=== PATIENT | male | born 1955 | race Caucasian/White ===

== ENCOUNTER 2024-10-08 12:20 | Outpatient (REF) | payer MEDICARE, MEDICAID, SELFPAY ==
[2024-10-08 15:14] LABS: Influenza A PCR NEGATIVE (Negative); Influenza B PCR NEGATIVE (Negative); Resp Syncy Virus RNA Qual PCR NEGATIVE (Negative); SARS COV2 PCR INHOUSE NEGATIVE (Negative)
--- OUTSIDE RECORDS SUMMARY | 2024-10-08 17:56 | XMS_ITS | Clinical Summary ---
Author Organization [facility] [address] [place] [address] [place] [phone] Phone Care Team Providers Care Sanding Machine Operator Or Tender Name Role Phone Jean Carlos Gamble MD Primary Care Provider Allergies Active Allergy Reactions Criticality Noted Date [...] there are some congenital anomalies of the [place]. There is a diminutive or [...] Dr. Corea right knee SINUS SURGERY PROCEDURE: AL UNLISTED PROCEDURE ACCESSORY SINUSES SHOULDER SURGERY PROCEDURE: AL UNLISTED PROCEDURE SHOULDER SHOULDER SURGERY PROCEDURE: AL UNLISTED PROCEDURE SHOULDER; COMMENT: left rc HAND [...] Visit Adult Medicine [facility] [address] [place] [phone] Jean Carlos Gamble MD [address] [place] [address] Health Maintenance Due Date Last Done Comments [...] EST Essential hypertension Coronary artery disease involving [place] coronary artery of [place] heart without angina pectoris Prediabetes VBI (vertebrobasilar [...] LAB CHEMISTRY METHOD 07/03/2024 5:28 PM EST [facility] Potassium 4.1 3.5 - 5.5 mmol/L LAB CHEMISTRY METHOD 07/03/2024 5:28 PM [facility] Chloride 106 96 - 110 mmol/L LAB CHEMISTRY METHOD 07/03/2024 5:28 PM [facility] CO2 27 21 - 32 mmol/L LAB CHEMISTRY METHOD 07/03/2024 5:28 PM [facility] Anion Gap 7 3 - 11 LAB CHEMISTRY METHOD 07/03/2024 5:28 PM [facility] Glucose 112(H) 70 - 100 mg/dL LAB CHEMISTRY METHOD 07/03/2024 5:28 PM [facility] BUN 10 5 - 25 mg/dL LAB CHEMISTRY METHOD 07/03/2024 5:28 PM [facility] Creatinine 0.90 0.70 - 1.30 mg/dL LAB CHEMISTRY METHOD 07/03/2024 5:28 PM [facility] eGFR 94 >=60 mL/min/1. 73m2 LAB CHEMISTRY METHOD 07/03/2024 5:28 PM [facility] Comment:Calculation based on the??Chronic Kidney Disease Epidemiology Collaboration (CKD-EPI) equation refit??without adjustment for race. BUN/Creatinine Ratio 11.1 LAB CHEMISTRY METHOD 07/03/2024 5:28 PM [facility] Calcium 9.3 8.5 - 10.5 mg/dL LAB CHEMISTRY METHOD 07/03/2024 5:28 PM [facility] Blood Venous blood specimen / Unknown Venipuncture / Unknown 07/03/2024 1:31 PM EST 07/03/2024 1:31 PM EST us Jean Carlos Gamble MD LAB BLOOD ORDERABLES Final Result [facility] [address] [place] [address], * Lipid panel (10/23/2023) [facility] LDL/HDL Ratio 3 0 - 4 Triglycerides 96 0 - 150 mg/dL Cholesterol 121 0 - 200 mg/dL HDL 41 >=40 mg/dL LDL Cholesterol 61 0 - 100 mg/dL Blood Venous blood specimen / Unknown Result [facility] Provider LAB BLOOD ORDERABLES Misa l Result * Falls Risk Assessment (10/06/2023) [facility] Falls Risk Assessment Abstracted Result [facility] Provider HEALTH MAINTENANCE Final Result * Depression Screening (10/06/2023) [facility] Depression Screening Abstracted Result [facility] Provider HEALTH MAINTENANCE Final Result * FIT-DNA (Cologuard) (06/30/2023) [facility] Colorectal Cancer Screening: FIT-DNA (Cologuard) Abstracted ,negative Result [facility] Provider HEALTH MAINTENANCE Final Result * Hepatitis C Screening (03/05/2013) [facility] Hepatitis C Screening Abstracted Result [facility] Provider HEALTH MAINTENANCE Final Result from Last 3 Months or Most Recently Relevant to Health Maintenance Insurance MEDICARE MEDICAID - [place] Care Teams Sanding Machine Operator Or Tender Relationship Specialty Start Date End Date Jean Carlos Gamble MD [address] [place] [address] PCP - General Internal Medicine 03/02/22
--- OUTSIDE RECORDS SUMMARY | 2024-10-08 17:56 | XMS_ITS | Clinical Summary ---
Author Organization [facility] Address [address] [place] [address] Care Team Providers Care Tank Wagon Driver Name Role Phone Mary Beth Hennessy MD [...] age to complete this topic Care Teams Tank Wagon Driver Relationship Specialty Start Date End Date Mary Beth Hennessy MD PCP - General Internal Medicine 02/11/21
== END 2024-10-08 12:21 | disposition home or self-care (01) ==
LOC: HO.LNP 12:20
PROVIDERS: Visit Provider Nurse Practitioner Family
DX: R68.89 Other general symptoms and signs (principal); R09.89 Other specified symptoms and signs involving the circulatory and respiratory systems; R05.9 Cough, unspecified; I25.2 Old myocardial infarction
CPT/HCPCS: 0241U; 99212

== ENCOUNTER → 2024-10-08 12:20 | Outpatient (AMB) | payer MEDICARE, MEDICAID, SELFPAY ==
--- NOTE | 2024-10-08 12:21 | AM.OFFWIN_ITS ---
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 Required: No Allergies acetaminophen [From Percocet] Allergy (Severe, Verified 10/08/24 12:48) Rash albuterol Allergy (Severe, Verified 10/08/24 12:48) Cough carisoprodol [From Soma] Allergy (Severe, Verified 10/08/24 12:48) Unknown Cephalosporins Allergy (Severe, Verified 10/08/24 12:48) Unknown oxycodone Allergy (Severe, Verified 10/08/24 12:48) Unknown Penicillins Allergy (Severe, Verified 10/08/24 12:48) Blister Medication List - Last Reconciled 10/08/24 by Ruchi Gillespie, [facility] carbidopa-levodopa 25-100 mg tabs PO clotrimazole 1% appl topical DAILY cyanocobalamin (vitamin B-12) 1,000 mcg PO 3XW diclofenac sodium 1% 2 grams topical BID metformin ER mg PO DAILY mupirocin 2% topical Do you need a note to return to daycare/school/sports/work: No HPI HPI Comments History of Present Illness Details History - The patient is a 69 year old male pres enting with upper respiratory symptoms and fatigue. - Symptoms began approximately a week ag o and include nasal congestion, cough, and overall fatigue. - Has a history of myocardial infarction , impacting his decision to avoid the COVID-19 vaccine. - The patient has tried Tylenol for symp brandon relief, which offers partial efficacy for body aches. - He denied receiving a flu vaccine this year. Physical Exam General: Awake, alert. No apparent distress Eyes: Sclera and conjunctiva clear bilaterally Nose: Nares patent, turbinates within normal limits, no sinus tenderness with palpation bilaterally Ears: Tympanic membranes intact and clear bilaterally Throat: Moist mucosa membrane, pharynx within normal limits Cardiovascular: RRR Respiratory: Clear to auscultation bilaterally Results - Swab for influenza, COVID-19, and RSV testing negative . Discussion Notes During the visit, I explained the testing process for influenza, COVID-19, and RSV. I advised the patient that if influenza is confirmed, there is a medication available to assist with recovery. In case of a COVID-19 diagnosis, the use of Paxlovid was addressed. However, I noted the drug's potential interaction with [place] and expressed the possibility of adverse effects. I recommended close observation and proposed phone discussions later to review test results and designate an appropriate treatment plan. As part of the decision-making process, I expressed intent to provide symptomatic treatment, such as an anti-cough medication, if that aligns with test results. I highlighted the need to pursue additional interventions when necessary and addressed the importance of following up on test findings promptly. The patient declined a work note. Assessment and Plan 1. Upper Respiratory Infection (suspecte d): Symptoms suggest an upper respiratory infection, pending confirmation from the swab results. I discussed t he possibility of medication for influenza and COVID-19, considering interactions with existing medications. The plan includes symptomatic relief and further treatment based on the results. 2. History of Myocardial Infarction: The patient's past myocardial infarction is a significant factor when considering treatments, especially considering contraindications. His decision not to pursue certain vaccinations post-event was reviewed. Patient Instructions - Await a call later today with your marbella t results to discuss next steps. - Continue using Tylenol for pain relief as needed. - Use a mask in public and practice good hand hygiene to prevent spread. - If symptoms worsen or new symptoms mandeep se, seek medical attention promptly. Viral swab negative, supportive care. [facility] on reasons to RTO/seek additional medical care. Consent Consent was obtained from the patient for nasal swabbing to test for influenza, COVID-19, and RSV. I reviewed the testing process and potential interactions of certain medications with his current treatment. The patient agreed to proceed understanding the potential risks and outcomes associated with the diagnostic procedures. Patient was informed and verbally consented to the use of an ambient scribe for clinic note documentation during this visit. Total time spent caring for the patient today was 30 minutes. This includes time spent before the visit reviewing the chart, time spent during the visit, and time spent after the visit on documentation, reviewing laboratory results, diagnostic imaging, medications, performing a medically necessary evaluation, counseling on diagnoses, care coordination, ordering appropriate tests, ordering appropriate medications, review of tests performed by other providers, reporting test results with the patient, communication with other healthcare providers. [facility] Social History Patient Tobacco Use Status: Never used Tobacco Physical Exam Vital Signs: Last Vital Signs Temp 97.5 F 10/08/24 12:29 Pulse 72 10/08/24 12:29 Resp 12 10/08/24 12:29 BP 122/70 10/08/24 12:29 Pulse Ox 96 10/08/24 12:29 Oxygen Delivery Method Room Air 10/08/24 12:29 BMI result Body Mass Index 34.0 Results Reviewed Results Reviewed: RUN: 10/08/24 1522 PAGE 1 [facility] [address] [place] [id number] Steam Press Operator: Devante Liao M.D. Specimen Inquiry Name: Lee Garza Age/Sex: 69/M : 1955 Unit#: [id number] Attend Dr: Ruchi Gillespie Re10/08/24 Status: REG REF Location: [facility] Disch: SPEC : [id number] PARISH: 10/08/24 STATUS: COMP REQ : [id number] RECD: 10/08/[address] [facility] [address]: Ruchi GillespiePDedra COMP: 10/08/24 ENTERED: 10/08/[address] [facility] [address]: ORDERED: SARS/FLU/RSV Test Result Flag Reference Influenza A PCR NEGATIVE Negative Influenza B PCR NEGATIVE Negative RSV RNA QualPCR NEGATIVE Negative SARSCOV2 RT-PCR NEGATIVE Negative All test results must be correlated with clinical findings. Negative results do not preclude SARS-CoV2, influenza A virus, influenza B virus and/or RSV infection and should not be used as the sole basis for treatment or other patient management decisions. Negative results must be combined with clinical observations, patient history, and epidemiological information. This test has not been evaluated for monitoring treatment of infection. This test has been authorized by the FDA under an Emergency Use Authorization (EUA) for use by authorized laboratories. Testing performed on the [place] [facility]Xpert utilizing real-time RT-PCR. All SARS CoV2 and positive influenza A/B results are reported to [facility]. Assessment & Plan Assessment & Plan (1) Flu-like symptoms: Code(s): R68.89 - Other general symptoms and signs Plan . Orders: Orders SARS-CoV2/FLU/RSV Today R09.89 - Other specified symptoms and signs involving the circulatory and respiratory systems, R68.89 - Other general symptoms and signs Medications: New guaifenesin ER (Mucinex) 600 mg PO Q12H 10 days PRN 20 tabs 0RF congestion Patient Instructions: Patient Instructions - Await a call later today with your test results to discuss next steps. - Continue using Tylenol for pain relief as needed. - Use a mask in public and practice good hand hygiene to prevent spread. - If symptoms worsen or new symptoms arise, seek medical attention promptly. Coding Level of Care Code Est Pt Level 4 (15988) Diagnoses Flu-like symptoms R68.89
[2024-10-08 12:29] VITALS: BP 122/70; PULSE 72; RESP 12; TEMP 36.4; O2SAT 96; BMI 34.0
--- OUTSIDE RECORDS SUMMARY | 2024-10-08 14:58 | XMS_ITS | Clinical Summary ---
Author Organization [facility] Address [address] [place] [address] Care Team Providers Care Skimmer Reverberatory Name Role Phone Mary Beth Hennessy MD Primary Care Provid er Social History Tobacco Use Types Packs/Day Years Used Date Smoking Tobacco: Never Assessed Sex and Gender Information Value Date Recorded Sex Assigned at Not on file Gender Identity Not on file Sexual Orientation Not on file Plan of Treatment Health Maintenance Due Date Last Done Comments Hepatitis C Screening 1955 Depression Screening 1969 Preventative Health Evaluation 1975 DTap / Tdap / Td (1 - Tdap) 02/01/1976 Colon Cancer Screening (Colonoscopy) 2002 Shingrix-Zoster Vaccine (1 of 2) 2007 Fall Risk Assessment 2022 Pneumococcal Vaccine (1 of 1 - PCV) 2022 COVID-19 Vaccine (2 - 2023-2 5 season) 2024 01/26/2021 Influenza Vaccine (#1) 2024 RSV Adult > 60+ Yrs or Pregn ant (1 - 1-dose 75+ series) 02/01/2032 Hepatitis B Vaccines Aged Out No long er eligible based on patient's age to complete this topic RSV Ped < 20 months Aged Out No longe r eligible based on patient's age to complete this topic Care Teams Skimmer Reverberatory Relationship Specialty Start Date End Date Mary Beth Hennessy MD PCP - General Internal Medicine 02/11/21
--- OUTSIDE RECORDS SUMMARY | 2024-10-08 14:58 | XMS_ITS | Clinical Summary ---
Author Organization [facility] [address] [place] [address] [place] [phone] Phone Care Team Providers Care Supervisor Lead Burning Name Role Phone Jean Carlos Gamble MD Primary Care Provider [phone] Allergies Active Allergy Reactions Criticality Noted Date Comments Albuterol Sulfate Cough Medium 04/07/2011 Amoxicillin-Pot Clavulanate 08/18/19 10 Aspartame 12/19/2011 Bleeding hx ulcers Carisoprodol 03/04/2013 Cephalosporins Rash 07/29/2010 Clavulanic Acid 03/04/2013 Other 10/31/2022 Seasaonal allergies Oxycodone 03/04/2013 Oxycodone-Acetaminophen Rash Low 05/06/2010 Penicillins 08/18/2009 Sulfa (Sulfonamide Antibiotics) 09/21/2009 Medications carbidopa-levod opa (SINEMET) 25-100 mg per tablet Take 1.5 tablets by mouth 4 (four) times a day. 4 Active carvediloL (COREG) 3.125 mg tablet Take 1 Tablet by mouth 2 times daily (with meals). 4 Active cholecalciferol (VITAMIN D-3) 50 mcg (2,000 unit) tablet Take 1 Tablet by mouth daily. 4 Active cyanocobalamin (VITAMIN B-12) 1,000 mcg tablet Take 1 Tablet by mouth three times a week. 4 Active fluticasone propionate (FLONASE) 50 mcg/actuation nasal spray USE 2 SPRAYS IN EACH NOSTRIL EVERY DAY 4 Active ipratropium HFA (Atrovent HFA) 17 mcg/actuation inhaler Inhale into the lungs. 0 Active loratadine (CLARITIN) 10 mg tablet Take 1 Tablet by mouth daily. 4 Active menthol 3.5 % gel Apply topically. Active metFORMIN XR (GLUCOPHAGE-XR) 500 mg 24 hr tablet TAKE 1 TABLET BY MOUTH EVERY DAY WITH BREAKFAST 4 Active nitroglycerin (NITROSTAT) 0.[address] 1 Tablet under the tongue every 5 minutes as needed for Chest pain. (CALL 911 AFTER USE.) 4 Active atorvastatin (LIPITOR) 40 mg tablet Take 1 tablet (40 mg total) by mouth 1 (one) time each day. 90 tablet 1 4 Active aspirin 81 mg EC tablet TAKE 1 TABLET BY MOUTH EVERY DAY 90 tablet 1 4 10/22/19 25 Active mupirocin (BACTROBAN) 2 % ointment Apply topically 2 (two) times a day. 22 g 1 4 Active diclofenac (VOLTAREN) 1 % topical gel Apply 2 g topically 2 (two) times a day. 90 g 1 4 Active clotrimazole (LOTRIMIN) 1 % cream Apply topically 2 (two) times a day. 30 g 1 4 Active penciclovir (DENAVIR) 1 % cream Apply topically 1 (one) time each day. 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 He was told of narrowing of the blood vessel and while there are some congenital anomalies of the [place]. There is a diminutive or occluded right vert extending down to C2. He has a history of being off balance since having some dizziness but I would be concerned about this vessel narrowing if he showed evidence of stroke. His MRI is negative for infarct. He is already on a baby aspirin and Brilinta so there is no further treatment for this. I did caution him about going to see a chiropractor and that there is minimal manipulation of his neck. He was given a copy of this MRA report to share with his chiropractor. Prediabetes 07/26/2023 VBI (vertebrobasilar insufficiency) 06/07/2023 Kidney cysts 11/09/2020 Overview (05/22/2024): 4.1 cm exophytic left kidney cyst. Referred to urology Normocytic anemia 11/09/2020 Overview (05/22/2024): Pending iron studies and repeat colonoscopy Essential hypertension 06/18/2019 Coronary artery disease 11/20/2017 History of myocardial infarct at age [place] n 62 years 10/19/2017 Asthma 08/03/2016 Allergic rhinitis 04/30/2014 Obesity (BMI 35.0-39.9 without comorbidity) 08/15 DDD (degenerative disc disease), lumbar 08/22/19 14 Mild intellectual disability 03/19/2013 Depression 09/03/2012 Edema 01/05/2012 Lung mass 06/01/2011 Overview (05/22/2024): Stable on multiple CT scans; no repeat needed Anxiety 01/27/2010 Chronic sinusitis 09/24/2009 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 Garza mainly noting the left-sided cord compression at C5-6 which may be compressing the exiting nerve root. There is no signal change in the cord and he is not myelopathic on exam. He is right-handed and when he does not drop things, it is from his right hand not his left. He has good dexterity and is able to perform his ADLs. I do not have access to old MRIs but he was told of this disc herniation 20 to 30 years ago and advised against surgery back then. At this point, I would consider it only if he was myelopathic. Mixed hyperlipidemia 08/18/2009 Immunizations Name Administration Dates Next Due PPD Test 11/14/2011 Pfizer SARS-CoV-2 COVID-19, mRNA, LNP-S, preservative free 02/16/2021,01/26/2021 Td Tetanus diptheria (Tdvax) 7yo and older 01/17,01/16/2008 Surgical History Surgery Date Site/Laterality Comments TOTAL KNEE ARTHROPLASTY PROCEDURE: HISTORICAL TOTAL KNEE REPLACE; COMMENT: 12.22.03 Dr. Corea right knee SINUS SURGERY PROCEDURE: MT UNLISTED PROCEDURE ACCESSORY SINUSES SHOULDER SURGERY PROCEDURE: MT UNLISTED PROCEDURE SHOULDER SHOULDER SURGERY PROCEDURE: MT UNLISTED PROCEDURE SHOULDER; COMMENT: left rc HAND SURGERY 04/22/2021 Left PROCEDURE: HISTORICAL HAND SURGERY; COMMENT: trigger finger release, index Medical History Medical History Date Comments Pure hypercholesterolemia 08/18/2009 DX:Pur e hypercholesterolemia Herniated cervical disc 08/18/2009 DX:Herni ated cervical disc; COMMENT: gets injections Depression DX:Depression Panic attacks DX:Panic attacks Chronic sinusitis DX:Chronic sin usitis; COMMENT: requiring mult surgeries Knee pain DX:Knee pain; CO MMENT: Dr. Corea, lema's cyst s/p surgery DDD (degenerative disc disea se), lumbar DX:DDD (degenerative disc di sease), lumbar Family History Medical History Relation Name Comments Autoimmune disease Neg Hx Breast cancer Neg Hx Colon cancer Neg Hx Coronary artery disease Neg Hx Diabetes Neg Hx Heart attack Neg Hx Heart failure Neg Hx Hyperlipidemia Neg Hx Hypertension Neg Hx Mental illness Neg Hx Prostate cancer Neg Hx Sleep apnea Neg Hx Thyroid disease Neg Hx Relation Name Status Comments Brother Alive Father (Age 60's) quad byp ass Maternal Grandfather diabete s Maternal Grandmother Mother (Age 70) heart prob theresa, renal failure, diabetes removal of toes on right foot Paternal Grandfather Paternal Grandmother Sister 1 Alive Sister 2 Alive Sister 3 Alive Social History Tobacco Use Types Packs/Day Years Used Date Smoking Tobacco: Former Cigarettes Q uit: 08/14/1969 Smokeless Tobacco: Never Alcohol Use Standard Drinks/Week Comments No 0 (1 standard drink = 0.6 oz pur e alcohol) Sex and Gender Information Value Date Recorded Sex Assigned at Not on file Legal Sex Male 6:59 AM EST Gender Identity Not on file Sexual Orientation Not on file Obstetrics History Last Filed Vital Signs Vital Sign Reading Time Taken Comments Blood Pressure 122/78 07/03/2024 12:37 PM EST Pulse 88 07/03/2024 12:37 PM EST Temperature 36.8 ??C (98.2 ??F) 07/03/2024 12:[address] Respiratory Rate 18 07/03/2024 12:37 PM EST Oxygen Saturation 96% 10/29/2021 8:37 AM EDT RA Inhaled Oxygen Concentration - - Weight 106 kg (233 lb) 07/03/2024 12:37 PM EST Height 177.8 cm (5' 10 ) 07/03/2024 12:37 PM EST Body Mass Index 33.43 07/03/2024 12:37 PM EST Plan of Treatment Upcoming Encounters Date Type Department Care Team (Late st Contact Info) Description 12/04/2024 9:00 AM EDT Office Visit Adult Medicine [facility] [address] [place] [phone] Jean Carlos Gamble MD [address] [place] [address] Health Maintenance Due Date Last Done Comments Pneumococcal Vaccine: 50+ Years (1 of 2 - PCV) 02/01/1976 Zoster Vaccines (1 of 2) 2007 RSV Immunization Patients 60 + Years Old (1 - Risk 60-74 years 1-dose series) 2017 Abdominal Aortic Aneurysm (AAA) Screen 07/23/2022 Medicare Annual Wellness Visit 07/23/2022 Social Influencers of Health Screening 07/23/2022 DTaP,Tdap,and Td Vaccines (3 - Td or Tdap) 01/17/2023 01/17/2013, 01/16/2008 COVID-19 Vaccine (3 - 2023-2 5 season) 2024 02/16/2021, 01/26/2021 Influenza Vaccine (#1) 2024 Depression Screening 10/06/2024 10/06/2023 Falls Risk Assessment 10/06/2024 10/06/2023 Hypertension/CHF/CAD Annual BMP Blood Test 07/03/2025 07/03/2024, 2024, 2024 Colorectal Cancer Screening: FIT-DNA (Cologuard) 06/30/2026 06/30/2023, 06/30/2023 Cholesterol Screening (Lipid Panel) 10/22/2028 10/23/2023 Hepatitis C Screening Completed 03/05/2013 HIB Vaccines Aged Out No longer eligi ble based on patient's age to complete this topic HPV Vaccines Aged Out No longer eligi ble based on patient's age to complete this topic Hepatitis A Vaccines Aged Out No long er eligible based on patient's age to complete this topic Hepatitis B Vaccines Aged Out No long er eligible based on patient's age to complete this topic IPV Vaccines Aged Out No longer eligi ble based on patient's age to complete this topic MMR Vaccines Aged Out No longer eligi ble based on patient's age to complete this topic Meningococcal ACWY Vaccine Aged Out N o longer eligible based on patient's age to complete this topic Meningococcal B Vacine Aged Out No lo nger eligible based on patient's age to complete this topic RSV Immunization Patients Under 20 months Aged Out No longer eligible b ased on patient's age to complete this topic Varicella Vaccines Aged Out No longer eligible based on patient's age to complete this topic Procedures Procedure Name Priority Date/Time Associated Diagnosis Comments BASIC METABOLIC PANEL Routine 07/03/2024 1:31 PM EST Essential hypertension Coronary artery disease involving [place] coronary artery of [place] heart without angina pectoris Prediabetes VBI (vertebrobasilar insufficiency) Mixed hyperlipidemia Movement disorder Ataxia Urinary frequency Spondylosis of cervical region without myelopathy or radiculopathy Other fatigue Screening for prostate cancer B12 deficiency LIPID PANEL Routine 10/23/2023 DEPRESSION SCREENING Routine 10/06/2023 FALLS RISK ASSESSMENT Routine 10/06/2023 FIT-DNA Routine 06/30/2023 HEPATITIS C SCREENING Routine 03/05/2013 from Last 3 Months or Most Recently Relevant to Health Maintenance Results * (ABNORMAL) Basic metabolic panel (07/03/2024 1:31 PM EST) Sodium 140 133 - 145 mmol/L LAB CHEMISTRY METHOD 07/03/2024 5:28 PM EST [facility] Potassium 4.1 3.5 - 5.5 mmol/L LAB CHEMISTRY METHOD 07/03/2024 5:28 PM [facility] Chloride 106 96 - 110 mmol/L LAB CHEMISTRY METHOD 07/03/2024 5:28 PM [facility] CO2 27 21 - 32 mmol/L LAB CHEMISTRY METHOD 07/03/2024 5:28 PM [facility] Anion Gap 7 3 - 11 LAB CHEMISTRY METHOD 07/03/2024 5:28 PM [facility] Glucose 112(H) 70 - 100 mg/dL LAB CHEMISTRY METHOD 07/03/2024 5:28 PM [facility] BUN 10 5 - 25 mg/dL LAB CHEMISTRY METHOD 07/03/2024 5:28 PM [facility] Creatinine 0.90 0.70 - 1.30 mg/dL LAB CHEMISTRY METHOD 07/03/2024 5:28 PM [facility] eGFR 94 >=60 mL/min/1. 73m2 LAB CHEMISTRY METHOD 07/03/2024 5:28 PM [facility] Comment:Calculation based on the??Chronic Kidney Disease Epidemiology Collaboration (CKD-EPI) equation refit??without adjustment for race. BUN/Creatinine Ratio 11.1 LAB CHEMISTRY METHOD 07/03/2024 5:28 PM [facility] Calcium 9.3 8.5 - 10.5 mg/dL LAB CHEMISTRY METHOD 07/03/2024 5:28 PM [facility] Blood Venous blood specimen / Unknown Venipuncture / Unknown 07/03/2024 1:31 PM EST 07/03/2024 1:31 PM EST us Jean Carlos Gamble MD LAB BLOOD ORDERABLES Final Result [facility] [address] [place] [address], * Lipid panel (10/23/2023) [facility] LDL/HDL Ratio 3 0 - 4 Triglycerides 96 0 - 150 mg/dL Cholesterol 121 0 - 200 mg/dL HDL 41 >=40 mg/dL LDL Cholesterol 61 0 - 100 mg/dL Blood Venous blood specimen / Unknown Result [facility] Provider LAB BLOOD ORDERABLES Misa l Result * Falls Risk Assessment (10/06/2023) [facility] Falls Risk Assessment Abstracted Result [facility] Provider HEALTH MAINTENANCE Final Result * Depression Screening (10/06/2023) [facility] Depression Screening Abstracted Result [facility] Provider HEALTH MAINTENANCE Final Result * FIT-DNA (Cologuard) (06/30/2023) [facility] Colorectal Cancer Screening: FIT-DNA (Cologuard) Abstracted ,negative Result [facility] Provider HEALTH MAINTENANCE Final Result * Hepatitis C Screening (03/05/2013) [facility] Hepatitis C Screening Abstracted Result [facility] Provider HEALTH MAINTENANCE Final Result from Last 3 Months or Most Recently Relevant to Health Maintenance Insurance MEDICARE MEDICAID - [place] Care Teams Supervisor Lead Burning Relationship Specialty Start Date End Date Jean Carlos Gamble MD [address] [place] [address] PCP - General Internal Medicine 03/02/22
== END ==
LOC: HO.HMCWIW 12:20
PROVIDERS: Visit Provider Nurse Practitioner Family
DX: R68.89 Other general symptoms and signs (principal)

== ENCOUNTER 2025-07-02 10:01 | Outpatient (AMB) | payer MEDICARE, SELFPAY ==
--- NOTE | 2025-07-02 10:05 | MHC.OFFVIS ---
Intake Visit Reasons: 8M PSP Accompanied by: Spouse Allergies acetaminophen (From Percocet) Allergy (Severe, Verified 07/02/25 10:05) Rash albuterol Allergy (Severe, Verified 07/02/25 10:05) Cough carisoprodol (From Soma) Allergy (Severe, Verified 07/02/25 10:05) Unknown Cephalosporins Allergy (Severe, Verified 07/02/25 10:05) Unknown oxycodone Allergy (Severe, Verified 07/02/25 10:05) Unknown Penicillins Allergy (Severe, Verified 07/02/25 10:05) Blister Medication List - Last Reconciled 07/02/25 by Pippa Mobley CNP aspirin 81 mg PO DAILY atorvastatin 40 mg PO DAILY carvedilol 3.125 mg PO BID cyanocobalamin (vitamin B-12) 1,000 mcg PO 3XW diclofenac sodium 1% 2 grams topical BID mupirocin 2% topical HPI Comments Details: 70-year-old man with hypertension, mild diabetes, and PSP. He tried carbidopa-levodopa, but felt better after stopping medication in 11/2024. He was doing about the same. Dizziness was still there. Balance was not so good. He was walking with walker. He had few minor falls without injury. No episodes of syncope. No difficulty eating, drinking, or swallowing. Sleep was okay. Mood was okay. [facility] Medical History (Updated 07/02/25 @ 10:11 by Pippa Mobley CNP) Flu-like symptoms Syncope Orthostatic hypotension PSP (progressive supranuclear palsy) Social History Patient Tobacco Use Status: Never used Tobacco Review of Systems Const Denies chills, Denies daytime sleepiness, Denies difficulty sleeping, Denies fatigue, Denies fever(s), Denies frequent falls, Denies headache(s), Denies increased appetite, Denies poor appetite, Denies snoring, Denies weakness, Denies weight gain and Denies weight loss Eyes Denies loss of vision ENT Denies vertigo, Reports dizziness, Denies headache(s) and Denies neck pain Card Denies chest pain at rest, Denies chest pain with activity, Denies syncope, Denies leg edema, Denies palpitations, Denies dyspnea and Denies dyspnea on exertion Resp Denies cough, Denies dyspnea, Denies dyspnea on exertion and Denies snoring GI Denies abdominal pain, Denies constipation, Denies heartburn, Denies diarrhea and Denies nausea Denies urinary frequency, Denies urinary incontinence and Denies urinary urgency Musc Reports abnormal gait (balance difficulty), Denies back pain, Denies myalgias, Denies arthralgias, Denies neck pain, Denies numbness and Denies tingling Neuro Reports Abnormal speech present, Reports abnormal gait (balance difficulty), Denies vertigo, Reports dizziness, Denies syncope, Denies frequent falls, Denies headache(s), Denies lack of coordination, Denies loss of vision, Denies memory loss, Denies numbness, Denies Other visual disturbances, Denies restless legs, Denies seizure-like activity, Denies tingling, Denies paresthesias, Denies tremor(s) and Denies weakness Psych Denies anxiety, Denies depression, Denies auditory hallucinations, Denies memory loss and Denies visual hallucinations Endo Denies fatigue and Denies palpitations Physical Exam Const Other: General Appearance:? normal, in no acute distress. Heart:? S1, S2 normal, no murmurs. Lungs:? clear anteriorly and posteriorly. Musculoskeletal:? normal. Extremities:? no edema. Psych:? alert, oriented, cognitive function intact, cooperative with exam. Neuro Other: Abnormal Neurological Findings:?Decreased facial expressions and reduced blinking frequency. Loss of all saccadic eye movements. Slow, deliberate, slightly dysarthric speech. Reduced arm swing. Walking with cane. Bradykinesia. Mental Status: alert and oriented X 3. Normal attention, orientation, memory, and affect. Cranial Nerves: Pupils are equal, round, and reactive to light. External ocular muscles are intact. Visual riley are full, no ptosis. Face is symmetrical, no facial weakness or droop. Facial sensations are normal. Tongue protrudes in midline. Palate elevates symmetrically. Shoulder shrugging is normal Motor Examination: Normal muscle tone, bulk and strength. No atrophy or fasciculations. No drift of the extended upper extremities. DTR 2+. Plantars are flexor. Sensory Exam: Normal light touch, temperature, pinprick, vibration, and joint-position sensations. Rhomberg sign is absent. Coordination: No ataxia. No titubation. Gait Exam: With cane, reduced arm swing. Cerebellar Signs: Spnigc-ah-kuvm is okay. Extrapyramidal System: As above. Speech: As above. Speech: Abnormal speech present Results Reviewed Results Reviewed: 06/19/2024 EEG: WNL Assessment & Plan Assessment & Plan (1) PSP (progressive supranuclear palsy): Code(s): G23.1 - Progressive supranuclear ophthalmoplegia [Rasheed] Category: Medical Plan: Continue to use cane, may consider walker for additional support. (2) Orthostatic hypotension: Code(s): I95.1 - Orthostatic hypotension Category: Medical Plan Meds tried: carbidopa-levodopa (up to 2 tabs QID) Coding Level of Care Code Est Pt Level 3 (85662) Diagnoses PSP (progressive supranuclear palsy) G23.1 Orthostatic hypotension I95.1
--- OUTSIDE RECORDS SUMMARY | 2025-07-02 18:52 | XMS_ITS ---
Author Name [facility] Organization Unknown Care Team Organization Name Specialty Phone Email Start Date End Da te [facility] Termed, PROVIDER Primary Care 01/20/202303/14 [facility] Mary Beth Grey Primary Care 06/21/2022
--- OUTSIDE RECORDS SUMMARY | 2025-07-02 18:52 | XMS_ITS | Clinical Summary ---
Author Organization [facility] Address [address] [place] [address] Care Team Providers Care Insurance Defense Attorney Name Role Phone Mary Beth Hennessy MD [...] - PCV) 2022 COVID-19 Vaccine (2 - 2024-2 6 season) 2025 01/26/2021 Influenza Vaccine (#1) 2025 RSV Adult > 60+ Yrs or Pregn ant (1 - 1-dose 75+ series) 02/01/2032 Hepatitis B Vaccines Aged Out No long er eligible based on patient's age to complete this topic RSV Ped < 20 months Aged Out No longe r eligible based on patient's age to complete this topic Care Teams Insurance Defense Attorney Relationship Specialty Start Date End Date Mary Beth Hennessy MD PCP - General Internal Medicine 02/11/21
--- OUTSIDE RECORDS SUMMARY | 2025-07-02 18:52 | XMS_ITS | Clinical Summary ---
Author Organization [facility] [address] [place] [address] [place] [phone] Phone Care Team Providers Care Telegraph Mechanic Name Role Phone Jean Carlos Gamble MD Primary Care Provider Allergies Active Allergy Reactions Criticality Noted Date Comments Albuterol Sulfate Cough Medium 04/07/2011 Amoxicillin-Pot Clavulanate 08/18/19 10 Aspartame 12/19/2011 Bleeding hx ulcers Carisoprodol 03/04/2013 Cephalosporins Rash 07/29/2010 Clavulanic Acid 03/04/2013 Other 10/31/2022 Seasaonal allergies Oxycodone 03/04/2013 Oxycodone-Acetaminophen Rash Low 05/06/2010 Penicillins 08/18/2009 Sulfa (Sulfonamide Antibiotics) 09/21/2009 Medications cholecalcifero l (VITAMIN D-3) 50 mcg (2,000 unit) tablet Take 1 Tablet by mouth daily. 04/24/20 24 Active cyanocobalamin (VITAMIN B-12) 1,000 mcg tablet Take 1 Tablet by mouth three times a week. 04/24/20 24 Active ipratropium HFA (Atrovent HFA) 17 mcg/actuation inhaler Inhale into the lungs. 09/27/19 20 Active menthol 3.5 % gel Apply topically. Active nitroglycerin (NITROSTAT) 0.[address] 1 Tablet under the tongue every 5 minutes as needed for Chest pain. (CALL 911 AFTER USE.) 09/29/19 24 Active penciclovir (DENAVIR) 1 % cream Apply topically 1 (one) time each day. 1.5 g 1 08/06/20 24 Active fluticasone propionate (FLONASE) 50 mcg/actuation nasal spray SPRAY 2 SPRAYS INTO EACH NOSTRIL EVERY DAY 48 mL 1 10/30/19 25 Active diclofenac (VOLTAREN) 1 % topical gel Apply 2 g topically 2 (two) times a day. 90 g 1 10/30/19 25 Active clotrimazole (LOTRIMIN) 1 % cream Apply topically 2 (two) times a day. 30 g 1 03/14/20 25 Active omega 3-nkn-apb-fish oil (Fish OiL) 1,000 (120-180) mg capsule Take 1 capsule (1,000 mg total) by mouth 1 (one) time each day. OTC Active aspirin 81 mg EC tablet TAKE 1 TABLET BY MOUTH EVERY DAY 90 tablet 1 05/29/20 25 Active mupirocin (BACTROBAN) 2 % ointment Apply topically 2 (two) times a day. 66 g 1 06/09/20 25 Active atorvastatin (LIPITOR) 40 mg tablet TAKE 1 TABLET BY MOUTH EVERY DAY 90 tablet 1 06/10/20 25 Active carvediloL (COREG) 3.125 mg tablet TAKE 1 TABLET BY MOUTH TWICE A DAY WITH MEALS 180 tablet 1 06/17/20 25 Active carvediloL (COREG) 3.125 mg tablet Take 1 Tablet by mouth 2 times daily (with meals). 04/24/20 24 025 Discontinued atorvastatin (LIPITOR) 40 mg tablet TAKE 1 TABLET BY MOUTH ONCE A DAY 90 tablet 03/07/20 25 025 Discontinued mupirocin (BACTROBAN) 2 % ointment Apply topically 2 (two) times a day. 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 He was told of narrowing of the blood vessel and while there are some congenital anomalies of the [place]. There is a diminutive or [...] to share with his chiropractor. Prediabetes 07/26/2023 Assessment & Plan (05/07/2025 12:50 PM EDT): Orders: Hemoglobin A1c; Future VBI (vertebrobasilar insufficiency) 06/07/2023 Assessment & Plan (05/07/2025 12:50 PM EDT): Kidney cysts 11/09/2020 Overview (05/22/2024): 4.1 cm exophytic left kidney cyst. Referred to urology Normocytic anemia 11/09/2020 Overview (05/22/2024): Pending iron studies and repeat colonoscopy Essential hypertension 06/18/2019 Assessment & Plan (05/07/2025 12:50 PM EDT): Orders: Basic metabolic panel; Future Coronary artery disease stat us post coronary stent insertion 11/20/2017 Assessment & Plan (05/07/2025 12:50 PM EDT): Orders: Basic metabolic panel; Future History of myocardial infarct at age greater [...] if he was myelopathic. Mixed hyperlipidemia 08/18/2009 Assessment & Plan (05/07/2025 12:50 PM EDT): Encounters Date Type Department Care Team Description 05/07/2025 11:30 AM EDT Office Visit Adult [address] [phone] Jean Carlos Gamble MD Ataxia (Primary Dx); Movement disorder; Tinnitus of both ears; VBI (vertebrobasilar insufficiency); Essential hypertension; Coronary artery disease status post coronary stent insertion; Mixed hyperlipidemia; Prediabetes; B12 deficiency; Spondylosis of cervical region without myelopathy or radiculopathy; Encounter for subsequent annual wellness visit (AWV) in Medicare patient; Screening for prostate cancer; Screening for deficiency anemia 05/07/2025 Telephone Adult Medicine [address] [phone] Jean Carlos Gamble MD from Last 3 Months Immunizations Immunization Administration Dates Next Due PPD Test 11/14/2011 Pfizer SARS-CoV-2 COVID-19, mRNA, LNP-S, preservative free 02/16/2021,01/26/2021 Td Tetanus diptheria (Tdvax) 7yo and older 05/02,01/17/2013,01/16/2008 Surgical History Surgery Date Site/Laterality Comments TOTAL KNEE ARTHROPLASTY PROCEDURE: HISTORICAL TOTAL KNEE REPLACE; COMMENT: 12.22.03 Dr. Corea right knee SINUS SURGERY PROCEDURE: ID UNLISTED PROCEDURE ACCESSORY SINUSES SHOULDER SURGERY PROCEDURE: ID UNLISTED PROCEDURE SHOULDER SHOULDER SURGERY PROCEDURE: ID UNLISTED PROCEDURE SHOULDER; COMMENT: left rc HAND [...] Years Used Date Smoking Tobacco: Former Cigarettes 0.5 Q uit: 08/14/1969 Smokeless Tobacco: Never Alcohol Use Standard Drinks/Week Comments No 0 (1 standard drink = 0.6 oz pur e alcohol) Housing Instability Answer Date Recorde d Are you worried that in the next 2 months you may not have stable housing? No 05/07/2025 Food Access & Nutrition Answer Date Rec orded Do you have access to a vari ety of food including fruits and vegetables? No 05/07/2025 Access to Healthcare Answer Date Record ed Within the last 3 months, ho w many times did you visit the emergency department for your medical care? 0 05/07/2025 Health Literacy Answer Date Recorded How often do you need to hav e someone help you when you read instructions, pamphlets, or other written material from your doctor or pharmacy? Never 05/07/2025 Caregiver: How often do you need to have someone help you when you read instructions, pamphlets, or other written material from your doctor or pharmacy? Not on file 05/07/2025 Financial Risk Answer Date Recorded How hard is it for you to pa y for the very basics like food, housing, medical care, and air conditioning / heating? Not very hard 05/07/2025 Transportation Answer Date Recorded Has the lack of transportati on kept you from meetings, work, or from getting things needed for daily living? No Has the lack of transportati on kept you from medical appointments or from getting medications? No 05/07/2025 Social Isolation Answer Date Recorded How often do you feel lonely or isolated from th ose around you? Never 05/07/2025 Food Risk Answer Date Recorded Within the past 12 months we worried whether our food would run out before we got money to buy more. Never true 05/07/2025 Within the past 12 months th e food we bought just didn't last and we didn't have money to get more. Never true 05/07/2025 Living Situation Answer Date Recorded What is your living situation? Unrecognized valu e 05/07/2025 Sex and Gender Information Value Date Recorded Sex Assigned at Not on file Legal Sex Male 6:59 AM EST Gender Identity Not on file Sexual Orientation Not on file Obstetrics History Last Filed Vital Signs Vital Sign Reading Time Taken Comments Blood Pressure 131/71 05/07/2025 11:16 AM EDT Pulse 73 05/07/2025 11:16 AM EDT Temperature 35.9 C (96.6 F) 05/07/2025 11:16 AM EDT Respiratory Rate 16 12/04/2024 8:48 AM EDT Oxygen Saturation 96% 10/29/2021 8:37 AM EDT RA Inhaled Oxygen Concentration - - Weight 103 kg (227 lb) 05/07/2025 11:16 AM EDT Height 165.1 cm (5' 5 ) 05/07/2025 11:16 AM EDT Body Mass Index 37.77 05/07/2025 11:16 AM EDT Plan of Treatment Upcoming Encounters Date Type Department Care Team (Late st Contact Info) Description 09/10/2025 9:15 AM EST Office Visit Adult Medicine [address] [phone] Jean Carlos Gamble MD [address] [place] [address] Health Maintenance Due Date Last Done Comments Pneumococcal Vaccine: 50+ Years (1 of 2 - PCV) 02/01/1976 RSV Immunization Adult Patients (1 - Risk 50-74 years 1-dose series) 2007 Zoster Vaccines (1 of 2) 2007 Abdominal Aortic Aneurysm (AAA) Screen 07/23/2022 COVID-19 Vaccine (3 - season) 2025 02/16/2021, 01/26/2021 Influenza Vaccine (#1) 2025 Hypertension/CHF/CAD Annual BMP Blood Test 02/26/2026 02/26/2025, 07/03/2024, 2024, Additional history exists Falls Risk Assessment 05/07/2026 05/07/2025, 024 Medicare Annual Wellness Visit 05/07/2026 05/07/2025 Social Influencers of Health Screening 05/07/2026 05/07/2025 Colorectal Cancer Screening: FIT-DNA (Cologuard) 06/30/2026 06/30/2023, 06/30/2023 Cholesterol Screening (Lipid Panel) 02/26/2030 02/26/2025, 10/23/2023 DTaP,Tdap,and Td Vaccines (4 - Td or Tdap) 05/02/2035 05/02/2025, 05/02/2025, 01/17/2013, Additional history exists Hepatitis C Screening Completed 03/05/2013 Depression Screening Completed 05/07/2025, 10/06/19 HIB Vaccines Aged Out No longer eligi [...] age to complete this topic Meningococcal B Vaccine Aged Out No l onger eligible based on patient's age to complete this topic RSV Immunization Patients Under 20 months Aged Out No longer eligible based on patient's age to complete this topic Varicella Vaccines Aged Out No longer eligible based on patient's age to complete this topic Procedures Procedure Name Priority Date/Time Associated Diagnosis Comments BASIC METABOLIC PANEL Routine 02/26/2025 9:17 AM EDT Essential hypertension Coronary artery disease status post coronary stent insertion LIPID PANEL WITH REFLEX TO DIRECT LDL Routine 02/26/2025 9:17 AM EDT Mixed hyperlipidemia DEPRESSION SCREENING Routine 10/06/2023 FALLS RISK ASSESSMENT Routine 10/06/2023 FIT-DNA Routine 06/30/2023 HEPATITIS C SCREENING Routine 03/05/2013 from Last 3 Months or Most Recently Relevant to Health Maintenance Results * (ABNORMAL) Lipid panel with reflex to direct LDL (02/26/2025 9:17 AM EDT) Cholesterol 139 0 - 200 mg/dL LAB CHEMISTRY METHOD 02/26/2025 12:56 PM EDT [facility] Triglycerides 202(H) 0 - 150 mg/dL LAB CHEMISTRY METHOD 02/26/2025 12:56 PM EDT [facility] HDL 39(L) >=40 mg/dL LAB CHEMISTRY METHOD 02/26/2025 12:56 PM EDT [facility] LDL Calculated 60 0 - 100 mg/dL LAB CHEMISTRY METHOD 02/26/2025 12:56 PM EDT [facility] VLDL Cholesterol Leon 40.4 mg/dL LAB CHEMISTRY METHOD 02/26/2025 12:56 PM EDT [facility] Non HDL Chol. (LDL+VLDL) 100 <145 mg/dL LAB CHEMISTRY METHOD 02/26/2025 12:56 PM EDT [facility] Chol/HDL Ratio 3.6 0.0 - 4.4 LAB CHEMISTRY METHOD 02/26/2025 12:56 PM T [facility] Blood Venous blood specimen / Unknown Venipuncture / Unknown 02/26/2025 9:17 AM EDT 02/26/2025 9:17 AM EDT us Jean Carlos Gamble MD LAB BLOOD ORDERABLES Final Result [facility] [address] [place] [address], [place] [phone] * (ABNORMAL) Basic metabolic panel (02/26/2025 9:17 AM EDT) Sodium 137 133 - 145 mmol/L LAB CHEMISTRY METHOD 02/26/2025 12:54 PM [facility] Potassium 4.0 3.5 - 5.5 mmol/L LAB CHEMISTRY METHOD 02/26/2025 12:54 PM [facility] Chloride 104 96 - 110 mmol/L LAB CHEMISTRY METHOD 02/26/2025 12:54 PM [facility] CO2 28 21 - 32 mmol/L LAB CHEMISTRY METHOD 02/26/2025 12:54 PM [facility] Anion Gap 5 3 - 11 LAB CHEMISTRY METHOD 02/26/2025 12:54 PM [facility] Glucose 142(H) 70 - 100 mg/dL LAB CHEMISTRY METHOD 02/26/2025 12:54 PM [facility] BUN 10 5 - 25 mg/dL LAB CHEMISTRY METHOD 02/26/2025 12:54 PM [facility] Creatinine 0.90 0.70 - 1.30 mg/dL LAB CHEMISTRY METHOD 02/26/2025 12:54 PM [facility] eGFR 93 >=60 mL/min/1. 73m2 LAB CHEMISTRY METHOD 02/26/2025 12:54 PM [facility] Comment:Calculation based on the Chronic Kidney Disease Epidemiology Collaboration (CKD-EPI) equation refit without adjustment for race. BUN/Creatinine Ratio 11.1 LAB CHEMISTRY METHOD 02/26/2025 12:54 PM [facility] Calcium 9.4 8.5 - 10.5 mg/dL LAB CHEMISTRY METHOD 02/26/2025 12:54 PM [facility] Blood Venous blood specimen / Unknown Venipuncture / Unknown 02/26/2025 9:17 AM EDT 02/26/2025 9:17 AM EDT us Jean Carlos Gamble MD LAB BLOOD ORDERABLES Final Result [facility] [address] [place] [address], * Falls Risk Assessment (10/06/2023) Pathologist [facility] Falls Risk Assessment Abstracted Historical Provider HEALTH MAINTENANCE Final Result * Depression Screening (10/06/2023) Pathologist [facility] Depression Screening Abstracted Historical Provider HEALTH MAINTENANCE Final Result * FIT-DNA (Cologuard) (06/30/2023) Pathologist [facility] Colorectal Cancer Screening: FIT-DNA (Cologuard) Abstracted ,negative Historical Provider HEALTH MAINTENANCE Final Result * Hepatitis C Screening (03/05/2013) Pathologist [facility] Hepatitis C Screening Abstracted Historical Provider HEALTH MAINTENANCE Final Result from Last 3 Months or Most Recently Relevant to Health Maintenance Insurance [facility]ICARE [facility] MEDICARE MEDICAID [place] [employer] MEDICAID Care Teams Telegraph Mechanic Relationship Specialty Start Date End Date Jean Carlos Gamble MD [address] [place] [address] PCP - General Internal Medicine 03/02/22
== END 2025-07-02 10:28 | disposition home or self-care (01) ==
LOC: HO.HSM 10:01
PROVIDERS: PCP Internal Medicine; Referring Provider Internal Medicine; Visit Provider Registered Nurse
DX: G23.1 Progressive supranuclear ophthalmoplegia [Steele-Richardson-Olszewski] (principal); I95.1 Orthostatic hypotension
CPT/HCPCS: 99213

== ENCOUNTER → 2025-07-02 10:01 | Outpatient (BNVA) | payer MEDICARE, SELFPAY | PROVIDERS: PCP Internal Medicine; Referring Provider Internal Medicine; Visit Provider Registered Nurse | DX: G23.1 Progressive supranuclear ophthalmoplegia [Steele-Richardson-Olszewski] (principal); I95.1 Orthostatic hypotension; R42 Dizziness and giddiness; R26.81 Unsteadiness on feet | CPT/HCPCS: 99212 ==